=== PATIENT | male | born 1955 | race Caucasian/White ===

== ENCOUNTER → 2018-07-11 08:30 | Outpatient (CLI) | payer MEDICARE, MEDICAID | END | disposition home or self-care (01) | LOC: D.CT 08:30 | PROVIDERS: ATTEND Family Medicine | DX: R91.8 Other nonspecific abnormal finding of lung field (principal) ==

== ENCOUNTER 2019-02-08 05:40 | Day surgery (SDC) | payer MEDICARE ==
[2019-02-07 09:53] LABS: HEMATOCRIT 47.3 % (42.0-54.0); HEMOGLOBIN 16.1 g/dL (13.5-17.5); MCH 30.3 pg (26.0-34.0); MCV 88.9 fL (80.0-100.0); MEAN PLATELET VOLUME 10.6 fL (7.4-10.4); RBC 5.32 10x6/uL (4.20-6.10); RDW 13.2 % (11.5-14.5)
[~2019-02-08] VITALS: Ht 170.2 cm; Wt 85.3 kg
[~2019-02-08 05:40] MED LIST: ELIQUIS2.5 MG PO; GLIMEPIRIDE4 MG PO; KEFLEX500 MG PO; LANTUS SOL100 UNIT/1 SC; METOPROLOL PO; RANITIDINE HCL150 M1 PO; ULTRAM50 MG PO
[2019-02-08 07:25] VITALS: BP 152/92; Ht 170.2 cm; Wt 85.3 kg
[2019-02-08 07:26] LABS: APPEARANCE CLEAR (CLEAR); BILIRUBIN NEGATIVE (NEGATIVE); COLOR STRAW (YELLOW); GLUCOSE 250 mg/dL (NEGATIVE); KETONE NEGATIVE (NEGATIVE); NITRITE NEGATIVE (NEGATIVE); PROTEIN NEGATIVE (NEGATIVE); UROBILINOGEN NORMAL (NORMAL)
--- NOTE | 2019-02-08 07:49 | NUR ---
0730 BS 331. SHAYLA LIRA CRNA NOTIFIED OF BS. ALVINO RUNNING FAST. INSULIN ORDERED PER TELLO LIRA. MICKEY, IN PHARMACY, NOTIFIED OF NEED FOR INSULIN TO BE DELIVERED TO OPS.
--- NOTE | 2019-02-08 07:55 | NUR ---
0744 RECHECKED BS-305. SHAYLA LIRA CRNA NOTIFIED. NS SLOWED DOWN. PT RECEIVED 300CC NS. 0746 INSULIN DELIVERED TO OPS FOR PT TO RECEIVED ORDERED DOSE.
[2019-02-08] MEDS ORDERED: DURICEF500 MG PO (08:56)
[2019-02-08] MEDS ORDERED: HYDROCODON-ACE1 EAC7 PO (08:56)
--- NOTE | 2019-02-08 12:09 | OP ---
PATIENT NAME: VAISHALI HENDRIX MEDICAL RECORD: [id number] :51 LOCATION:[facility] ADMISSION DATE: SURGEON: ODALIS MANUEL DO DATE OF OPERATION: 02/08/2019 PROCEDURE PERFORMED: Excision of mass on the left index finger. PREOPERATIVE DIAGNOSIS: Soft tissue mass, left index finger. POSTOPERATIVE DIAGNOSIS: Soft tissue mass, left index finger. INDICATIONS: Mr. Hendrix is a 63-year-old male, who has had this mass on his left index finger for quite some time. He had a similar one on his back they had removed. It had been causing problems with gripping and using his hand. He wanted it removed. He was informed of the risks including damage to nerves and vessels, continued numbness in that radial side of the index finger and where the mass was, recurrence of the cyst. He was okay with all those, infection also and signed the consent. SURGEON: Odalis Manuel DO DESCRIPTION OF PROCEDURE: The patient was taken to the operative suite, laid in the supine position. A digital block was performed by myself with 0.5% Marcaine with epinephrine, 3 mL of the fluid were injected on the radial and ulnar side of the base of the left index finger. A time-out had been performed prior to this and everyone was in agreement with the correct side, site, patient and procedure. Once that was set up, the left upper extremity was prepped and draped in sterile fashion. He had been given 2 grams of Ancef. The incision began over the row of the middle phalanx of the left index finger. A finger tourniquet had been applied. An incision was made. He had no sensation in it due to the block. Once the incision was made through the skin, pickup and scissors were used to dissect out the mass about 1 cm x 0.5 cm, white color in nature and appeared to be somewhat tophaceous. This was removed and then the tourniquet was removed. There was no bleeding. The site was then irrigated and closed with 4-0 nylon in a simple fashion. Adaptic and 4 x 4 were placed over it. Tube finger dressing was placed on it. He was then taken back to pre and postoperative area due to the fact he did not receive any anesthesia. TRANSINT:[id number] Voice Confirmation ID: [id number] DOCUMENT ID: [id number] ODALIS MANUEL DO at 1209 CC: [id number] DICTATION DATE: 02/08/19 0854 SETTER UP: 02/08/19 1054 [facility] 02/08/19 [facility] [address] [place] [address]
[2019-03-20] MEDS ORDERED: BASAGLAR K100 UNIT/1 SC (14:19)
== END 2019-02-08 09:35 | disposition home or self-care (01) ==
LOC: D.OPS 05:40 → D.PAN 08:30 → D.OPS 09:35 → D.PAN 10:00 → D.OPS 10:00
PROVIDERS: Anesthesiology; ATTEND Orthopaedic Surgery
DX: R22.32 Localized swelling, mass and lump, left upper limb (principal); E11.9 Type 2 diabetes mellitus without complications; I10 Essential (primary) hypertension; N18.9 Chronic kidney disease, unspecified

== ENCOUNTER → 2019-03-01 15:55 | Outpatient (CLI) | payer MEDICARE ==
[2019-02-08 07:25] VITALS: BMI 29.5
[~2019-03-01 15:55] MED LIST changes: +BASAGLAR K100 UNIT/1 SC; +DURICEF500 MG PO; +HYDROCODON-ACE1 EAC7 PO
== END | disposition home or self-care (01) ==
LOC: D.LABREF 15:55
PROVIDERS: ATTEND Urology
DX: R82.90 Unspecified abnormal findings in urine (principal)

== ENCOUNTER → 2019-03-06 07:49 | Outpatient (CLI) | payer MEDICARE ==
[2019-02-08 07:25] VITALS: BMI 29.5
== END | disposition home or self-care (01) ==
LOC: D.CT 07:49
PROVIDERS: ATTEND Urology
DX: N20.0 Calculus of kidney (principal); N21.0 Calculus in bladder

== ENCOUNTER → 2019-03-15 15:12 | Outpatient (CLI) | payer MEDICARE ==
[2019-02-08 07:25] VITALS: BMI 29.5
== END | disposition home or self-care (01) ==
LOC: D.LABREF 15:12
PROVIDERS: ATTEND Urology
DX: N39.0 Urinary tract infection, site not specified (principal)

== ENCOUNTER 2019-03-21 10:40 | Day surgery (SDC) | payer MEDICARE ==
[2019-03-20 15:13] LABS: HEMATOCRIT 52.2 % (42.0-54.0); HEMOGLOBIN 17.5 g/dL (13.5-17.5); MCH 29.9 pg (26.0-34.0); MCHC 33.5 g/dL (31.0-37.0); MCV 89.2 fL (80.0-100.0); MEAN PLATELET VOLUME 10.9 fL (7.4-10.4); RBC 5.85 10x6/uL (4.20-6.10); RDW 12.5 % (11.5-14.5); WBC 5.7 10x3/uL (4.8-10.8)
[2019-03-20 15:23] LABS: ANION GAP 14.5 mmol/L (8-16); CALCIUM 9.6 mg/dL (8.5-10.1); CARBON DIOXIDE 23.3 mmol/L (21.0-32.0); CREATININE - SERUM 2.6 mg/dL (0.6-1.3); POTASSIUM - SERUM 4.8 mmol/L (3.5-5.1)
[~2019-03-21] VITALS: Ht 170.2 cm; Wt 87.1 kg
[2019-03-21 11:28] VITALS: BP 120/67; Ht 170.2 cm; Wt 87.1 kg
--- NOTE | 2019-03-21 13:27 | NUR ---
BLOOD SUGAR DONE IN [facility] REPORTED 223 TO PRABHAKAR PINA.
--- NOTE | 2019-03-21 14:30 | OP ---
PATIENT NAME: VAISHALI HENDRIX MEDICAL RECORD: [id number] :51 LOCATION:[facility] ADMISSION DATE: SURGEON: JAIRO CHERY MD DATE OF OPERATION: 03/21/2019 SURGEON: Jairo Chery MD ANESTHESIA: TIVA by Steve Robin MD DIAGNOSES: Obstructive BPH, recurrent urinary tract infections. PROCEDURE: UroLift times 7 units deployed, 4 units held in box configuration around the bladder neck. FINDINGS: Previous TURP. Obstructive bladder neck. In the bladder, there are single ureteral orifices bilaterally, there are no bladder tumors. CLINICAL HISTORY: This is a 63-year-old male, who has a history of kidney and bladder stones and recurrent urinary tract infections. The last urine culture grew Proteus mirabilis, which was sensitive to amoxicillin, clavulanic acid. His latest urinalysis shows no infection. He does have glucose in the urine from diabetes mellitus also. He is coming to have the UroLift procedure done today. He has chronic atrial fibrillation for which he is on Eliquis. The Eliquis was held by permission from his automotive artist, 3 days prior to surgery. HE IS ALLERGIC TO AMIODARONE, RYTHMOL, SOTALOL. He was given Ancef cloth seconds sorter to the OR. DESCRIPTION OF PROCEDURE: The patient was given IV sedation. He was then placed in the lithotomy position and prepped and draped. The UroLift scope was introduced. It was evident that he has had a previous resection of his prostate. The site of obstruction is at the bladder neck. Going into the bladder, no bladder tumors were seen. I attempted to place 4 units around the bladder neck in the box configuration. All units were placed 1.5 cm distal to the bladder neck. Two posterior repair placed at the mid urethral level went without any difficulty. The unit on the left anterolateral sulcus went without any difficulty. On the right anterolateral sulcus the unit kept striking bone. After multiple attempts, I finally managed to get the unit to hold properly. Thus, we fired 7 units, but there are only 4 units, which remained in the patient. The bladder was left partly full for a voiding trial today. I will see the patient in followup in 3 weeks' time. TRANSINT:[id number] Voice Confirmation ID: [id number] DOCUMENT ID: [id number] JAIRO CHERY MD at 1430 CC: [id number] DICTATION DATE: 03/21/19 1337 TREE WRAPPER: 03/21/19 1355 [facility] [address] [place] [address]
== END 2019-03-21 14:30 | disposition home or self-care (01) ==
LOC: D.OPS 10:40 → D.PAN 12:00 → D.OPS 12:45
PROVIDERS: Anesthesiology; ATTEND Urology
DX: N40.1 Benign prostatic hyperplasia with lower urinary tract symptoms (principal); N39.0 Urinary tract infection, site not specified; N13.8 Other obstructive and reflux uropathy; I10 Essential (primary) hypertension; I48.91 Unspecified atrial fibrillation

== ENCOUNTER 2019-05-03 11:06 | Emergency (ER) | payer MEDICARE ==
[~2019-05-03] VITALS: Ht 170.2 cm; Wt 80.9 kg
[2019-05-03 11:10] VITALS: Ht 170.2 cm; Wt 80.9 kg
[2019-05-03] MEDS ORDERED: ERYTHROMYCIN OPT1 GM RIGHT EYE (11:54)
[2019-05-03 12:32] VITALS: BP 130/68
== END 2019-05-03 12:33 | disposition home or self-care (01) ==
LOC: D.ER 11:06
DX: S05.01XA Injury of conjunctiva and corneal abrasion without foreign body, right eye, initial encounter (principal); X58.XXXA Exposure to other specified factors, initial encounter; Y93.9 Activity, unspecified; Y92.9 Unspecified place or not applicable; E11.9 Type 2 diabetes mellitus without complications; I10 Essential (primary) hypertension; I48.91 Unspecified atrial fibrillation; Z79.4 Long term (current) use of insulin

== ENCOUNTER → 2019-05-03 16:12 | Outpatient (CLI) | payer MEDICARE ==
[2019-05-03 11:10] VITALS: BMI 27.9
[~2019-05-03 16:12] MED LIST changes: +ERYTHROMYCIN OPT1 GM RIGHT EYE
== END | disposition home or self-care (01) ==
LOC: D.LABREF 16:12
PROVIDERS: ATTEND Urology
DX: R82.90 Unspecified abnormal findings in urine (principal)

== ENCOUNTER → 2019-05-17 15:41 | Outpatient (CLI) | payer MEDICARE ==
[2019-05-03 11:10] VITALS: BMI 27.9
== END | disposition home or self-care (01) ==
LOC: D.LABREF 15:41
PROVIDERS: ATTEND Urology
DX: R31.9 Hematuria, unspecified (principal); E74.39 Other disorders of intestinal carbohydrate absorption